=== PATIENT | female | born 2000 | race Caucasian/White ===

== ENCOUNTER → 2018-08-05 12:56 | Outpatient (CLI) | payer SELFPAY ==
[2018-08-05 14:23] LABS: Absolute Lymphocyte Count 1.38 X10^3/ul (0.83-4.51); Absolute Neutrophil Count 14.9 X10^3/uL (2.0-7.7); Basophil# 0.02 X10^3/uL; Basophil% 0.1 % (0-1); Eosinophil# 0.01 X10^3/uL; Eosinophils% 0.1 % (0-5); Hematocrit 41.7 % (37-47); Hemoglobin 13.6 g/dl (12.0-15.0); Lymphocyte # 1.38 X10^3/ul (4.0); Lymphocyte % 7.8 % (19-41); Mean Corp Hgb Conc 32.6 g/gl (32-36); Mean Corpuscular Hgb 29.4 pg (27.0-32.0); Mean Corpuscular Volume 90.3 fL (81-99); Mean Platelet Vol. 9.9 fl (6.2-12.0); Monocyte# 1.35 X10^3/uL; Monocyte% 7.7 % (0-10); Neutrophil # 14.86 X10^3/uL (2.7-7.7); Neutrophil % 84.2 % (47-70); Platelet Count 236 K/mm3 (150-450); RBC Distribution Width CV 14.1 % (11.6-14.6); RBC Distribution Width SD 46.6 fl (35.1-43.9); Red Blood Count 4.62 M/mm3 (4.2-5.4); White Blood Count 17.6 K/mm3 (4.4-11.0)
[2018-08-05 14:25] LABS: POSITIVE COUNT NO; POSITIVE DIFFERENTIAL NO; POSITIVE MORPHOLOGY NO
[2018-08-05 14:51] LABS: AST(SGOT) 7 U/L (15-37); Alanine Aminotransfer ALT/SGPT 17 U/L (13-56); Albumin, Serum 3.5 g/dL (3.2-5.0); Alkaline Phosphatase 76 U/L (45-117); Bilirubin, Direct 0.11 mg/dL (0.00-0.30); Globulin 4.4 g/dL (2.2-4.2); Protein, Total 7.9 g/dL (6.4-8.2)
[2018-08-05 15:21] LABS: Internal QC Validated? YES +Cl - CLEAR BKGD; Monotest Negative (Negative); Record Kit Lot#, Mono 13171517
[2018-08-07 07:50] LABS: EBV Acute VCA IgM < 36.0 U/mL (0.0-35.9); EBV Early Antigen IgG <9.0 U/mL (0.0-8.9)
== END ==
PROVIDERS: Family Provider Family Medicine; PCP Family Medicine; Referring Provider Family Medicine; Visit Provider Family Medicine
DX: J02.9 Acute pharyngitis, unspecified (principal)
CPT/HCPCS: 36415; 80076; 85025; 86308; 86663; 86664; 86665

== ENCOUNTER 2019-04-13 19:56 | Emergency (ER) | payer OTHER, SELFPAY ==
[2019-04-13 19:56] VITALS: BP 114/72; PULSE 145; RESP 18; TEMP 39.4; O2SAT 96; BMI 30.2
--- NOTE | 2019-04-13 21:12 | RAD_ITS ---
HISTORY: FEVER, BODY ACHES AND HEADACHES SINCE LAST NIGHT. INTERMITTENT SOB, ABDOMINAL PAIN EXAM: XR Chest 2 Views: COMPARISON: None FINDINGS: # of images incl. paperwork: 2 Lungs are clear. Heart is not enlarged. Bones are normal. Pulmonary vascularity is distinct. No effusions. RAD/Chest PA and Lateral IMPRESSION: Normal. at 2142 Reported and signed by: Doug Dixon MD Electronically Signed: Doug Dixon MD at 21:41 EDT Tel , Service support ,
--- NOTE | 2019-04-13 21:20 | ED.DCSUM_ITS ---
History of Present Illness Chief Complaint: Fever Informant: Patient, Family Onset: Yesterday Context: Gradual Onset Timing: Continuous Quality: achy, malaised Location: all over Current Severity: Moderate Maximum Severity: Moderate Worsened by: nothing Relieved by: nothing Associated Symptoms: low back discomfort, lower abd discomfort Narrative: Patient is having headache, she feels some stiffness/aching in her neck, myalgias without arthralgias or extremity rash. No nausea or vomiting. No neurologic symptoms in extremities. She has had no urinary symptoms but has had some discomfort in her lower abdomen. No coughing or shortness of breath, rhinorrhea, earache, or sore throat. No known sick contacts. She saw someone at PCP office earlier today, she states they did not know what was going on either and placed her on prednisone, she took 1 dose unknown dose, told her to come to the ER if she gets worse, which is where she is now. - Past Medical History (1) Small bowel obstruction due to adhesions Status: Resolved Past Medical History - Allergies and Home Meds Allergies/Adverse Reactions: Allergies No Known Allergies Allergy (Verified 04/13/19 20:02) Primary Care Physician: Noel Harmon MD [Primary Care Provider] - Surgical History: - - SBO surgery; malrotation repair as child Lives: With Family Smoking Status: Never smoker Drugs: None Review of Systems General: Reports: Fever, Malaise. Denies: Chills, Sweats Eyes: Denies: Visual changes - bilaterally, Diplopia ENT: Denies: Rhinorrhea, Sore throat Cardiovascular: Denies: Chest pain, Palpitations Respiratory: Denies: Dyspnea, Cough, Dyspnea on exertion Gastrointestinal: Reports: Abdominal pain. Denies: Nausea, Vomiting, Diarrhea, Melena, Hematochezia Genitourinary: Denies: Dysuria, Hematuria, Frequency Musculoskeletal: Reports: Myalgias, Neck pain, Back pain. Denies: Arthralgias, Extremity Pain Skin: Denies: Rash, Abscess, Wounds Neurological: Reports: Headache. Denies: Weakness, Parasthesia, Numbness Physical Exam Vital Signs/Narrative: Vital Signs Temp Pulse Resp BP Pulse Ox 04/13/19 19:56 103.0 F H 145 H 18 114/72 96 Inital Vital Signs reviewed: Yes General: Well nourished, Well developed, No Acute Distress Head: Normocephalic, Atraumatic Eyes: Perrl, EOMI, - - No photophobia ENT: Moist mucous membranes, No rhinorrhea, TM's clear Neck: Supple, Nontender, No lymphadenopathy, - - No meningismus. Full range of motion without any difficulty, including chin to chest, negative Brudzinski, and no neurologic symptoms. Cardiovascular: Regular rate, Regular rhythm, No murmurs Respiratory: No distress, CTA bilaterally, Chest nontender Abdomen: Soft, Nontender, Nondistended, Normal bowel sounds Back: Nontender, Normal Inspection. Negative for: CVA tenderness Extremities: Nontender, No edema. Negative for: Edema, Calf Tenderness Skin: Normal color, No rash, No Trauma Neurological: Alert, Oriented x3, Cranial nerves II-XII grossly intact, Normal Strength, Normal Sensation Psychological: Normal affect, Normal Mood Diagnostic/Tx/Re-eval Impressions Chest X-Ray 04/13/19 21:12 IMPRESSION: Normal. at 2142 Reported and signed by: Doug Dixon MD Electronically Signed: Doug Dixon MD at 21:41 EDT Tel , Service support , 04/13/19 21:12 Chest PA and Lateral [RAD] Stat 04/13/19 21:27 Mucosa - Nose Influenza Types A,B Direct FA (GEOVANNI) - Final Laboratory Results 04/13/19 04/13/19 04/13/19 20:20 21:45 21:45 WBC 11.4 H RBC 4.35 Hgb 13.0 Hct 38.0 MCV 87.4 MCH 29.9 MCHC 34.2 RDW 13.8 RDW Differential 44.4 H Plt Count 175 MPV 9.1 Immature Gran % (Auto) 0.200 Neut % (Auto) 84.9 H Lymph % (Auto) 6.8 L Esmeralda % (Auto) 8.0 Eos % (Auto) 0.0 Baso % (Auto) 0.1 Absolute Neuts (auto) 9.7 H Absolute Lymphs (auto) 0.78 L Total Counted Not Reportable Sodium 137 Potassium 3.5 Chloride 107 Carbon Dioxide 23.0 Anion Gap 7 BUN 10 Creatinine 0.89 Estim Creat Clear Calc 79.75 Est GFR (MDRD) Af Amer 103 Est GFR (MDRD) Non-Af 85 BUN/Creatinine Ratio 11.2 Glucose 120 H Calcium 8.5 Urine Color Yellow Urine Clarity Clear Urine pH 6.0 Ur Specific [place] 1.010 Urine Protein 15 H Urine Glucose (UA) Normal Urine Ketones Negative Urine Occult Blood 150 H Urine Nitrite Negative Urine Bilirubin Negative Urine Urobilinogen Normal Ur Leukocyte Esterase Negative Urine RBC 0-5 SEEN Urine WBC 0 SEEN Ur Squamous Epith Cells 0 SEEN Urine Bacteria 0 SEEN Urine Mucus 0 SEEN - Medical Decision Making Patient was given IV Toradol, she feels much better. Her headache and neck discomfort are much improved as well. She is not examining like a patient with bacterial meningitis and I do not think she requires an LP. We did discuss viral meningitis, which certainly is a possibility, but I do not think she has HSV and is not clinically encephalopathic. She is very well-appearing with an otherwise normal exam. I offered them/her an LP if she would desire it. They declined and are comfortable with supportive care and outpatient follow-up at home. The nurse practitioner they saw put her on prednisone and she took a dose. She has a mild leukocytosis with a mild left shift, prednisone can cause this, unknown if it is doing so already. Her urine is negative, chest x-ray is normal, influenza is negative, and the rest of her labs are unremarkable. They are comfortable going home and are welcome to return for worsening symptoms, I advised hydration and fever control and follow-up, we are obtaining blood cultures prior to discharge to rule out occult bacterial etiology. ED Disposition - Plan for ED Patient: Disposition: Home or Assisted Living Diagnosis: Viral syndrome Instructions: ED Fever Unconf Cause, ED Viral Syndrome Referrals: Noel Harmon MD [Primary Care Provider] - 2 Days Additional Instructions: Discontinue steroids.
[2019-04-13 21:26] LABS: Bacteria 0 SEEN /hpf (None Seen); Mucous, Urine 0 SEEN /hpf (<or=2+); Squamous Epithelial Cells - UA 0 SEEN /hpf (5-10); White Blood Cells 0 SEEN /hpf (0-5)
[2019-04-13 21:32] LABS: Color, Urine Yellow (Yellow); Glucose, Dipstick Normal (Normal); Ketone-Dipstick Negative (Negative); Leukocyte Esterase-Dipstick Negative /ul (Negative); Nitrite-Dipstick Negative (Negative); Occult Blood-Urine 150 /ul (Negative); Protein-Dipstick 15 mg/dl (Negative); Urine Bilirubin Dipstick Negative (Negative); Urine Clarity Clear (Clear); Urine Urobilinogen Normal (Normal)
[2019-04-13 21:39] LABS: Red Blood Cells-Urine 0-5 SEEN /hpf (0-5)
[2019-04-13] MEDS: Ketorolac 30 MG/ML Syringe IV (21:48)
[2019-04-13 21:49] VITALS: BP 122/62; PULSE 99; RESP 16; TEMP 39.4; O2SAT 96
[2019-04-13 21:51] LABS: Absolute Lymphocyte Count 0.78 X10^3/ul (0.83-4.51); Absolute Neutrophil Count 9.7 X10^3/uL (2.0-7.7); Basophil# 0.01 X10^3/uL; Basophil% 0.1 % (0-1); Lymphocyte # 0.78 X10^3/ul (4.0); Lymphocyte % 6.8 % (19-41); Mean Corp Hgb Conc 34.2 g/gl (32-36); Mean Corpuscular Hgb 29.9 pg (27.0-32.0); Mean Corpuscular Volume 87.4 fL (81-99); Mean Platelet Vol. 9.1 fl (6.2-12.0); Monocyte# 0.91 X10^3/uL; Neutrophil % 84.9 % (47-70); Platelet Count 175 K/mm3 (150-450); RBC Distribution Width CV 13.8 % (11.6-14.6); RBC Distribution Width SD 44.4 fl (35.1-43.9); Red Blood Count 4.35 M/mm3 (4.2-5.4); White Blood Count 11.4 K/mm3 (4.4-11.0)
[2019-04-13 22:00] LABS: POSITIVE COUNT NO; POSITIVE DIFFERENTIAL NO; POSITIVE MORPHOLOGY NO
[2019-04-13 22:08] LABS: Anion Gap 7 (5-15); BUN 10 mg/dL (7-18); BUN/Creat Ratio 11.2 RATIO (10-20); Calcium,Total 8.5 mg/dL (8.5-10.1); Chloride 107 mmol/L (98-107); Creatinine, Serum 0.89 mg/dL (0.55-1.02); EST Glomerular Filtration Rate 85 mL/min (>60); Est Glom Filt Rate - Afr Amer 103 mL/min (>60); Estimated Creatinine Clearance 79.75 ml/min; Glucose 120 mg/dL (74-106); Potassium 3.5 mmol/L (3.5-5.1); Sodium Level 137 mmol/L (136-145)
[2019-04-13 22:54] VITALS: BP 114/57; PULSE 83; RESP 16; TEMP 37.4; O2SAT 97
[2019-04-13 23:37] VITALS: BP 112/65; PULSE 84; RESP 18; O2SAT 98
== END 2019-04-13 23:38 | disposition home or self-care (01) ==
PROVIDERS: Emergency Provider Emergency Medicine; Family Provider Family Medicine; PCP Family Medicine
DX: B34.9 Viral infection, unspecified (principal); R50.9 Fever, unspecified; R51 Headache; M54.2 Cervicalgia; M79.10 Myalgia, unspecified site; R10.30 Lower abdominal pain, unspecified; M54.9 Dorsalgia, unspecified; Z87.19 Personal history of other diseases of the digestive system
CPT/HCPCS: 36415; 71046; 80048; 81001; 85025; 87040; 87804; 96374; 99284; A4216

== ENCOUNTER → 2021-08-07 15:53 | Outpatient (CLI) | payer OTHER, SELFPAY ==
[2021-08-07 20:01] LABS: Probe Check Y; Specimen Processing Control Y
== END ==
PROVIDERS: PCP Family Medicine; Referring Provider Otolaryngology; Visit Provider Otolaryngology
DX: Z11.59 Encounter for screening for other viral diseases (principal); Z03.818 Encounter for observation for suspected exposure to other biological agents ruled out
CPT/HCPCS: 87635; U0005; U0003

== ENCOUNTER → 2021-08-13 15:45 | Outpatient (CLI) | payer OTHER, SELFPAY ==
--- NOTE | 2021-08-13 | TONS_PTH ---
PATIENT: PARIS STOREY LOC: [facility] U#:[id number] AGE/SX: 25/F ROOM: RE08/13/[address]: Dr. Kishor Bridges MD : 2000 BED: DIS: SPEC #: [id number] RECD: 08/13/21 15:02 STATUS: BOBBI MOYAVerna #: [id number] JUAN CARLOS: 08/13/21 00:[address]: Kishor Bridges DEPT: SURGICAL PATHOLOGY RECD BY: Sander Mathew ENTERED: 08/14/21 09:54 SP TYPE: TONSILS OTHR DR: Dr. Noel Harmon MD [facility] Tissues: Tonsil, NOS Procedures: Surgery Specimen Level III HEADER OPERATION: Tonsillectomy PRE-OP DIAGNOSIS: Infective pharyngitis TISSUE SUBMITTED: Tonsils, right pinned MICROSCOPIC DIAGNOSIS Right and left tonsils, bilateral tonsillectomies: Benign lymphoid hyperplasia. Organisms consistent with actinomyces. AM:isha 08/15/2021 MICROSCOPIC DESCRIPTION Slides are reviewed. GROSS DESCRIPTION Received is one container labeled with the patient's name and designated tonsils - pin on right are two tonsils that in aggregate weigh 8.9 gm. The right tonsil has a pin on it and measures 3 x 2 x 1.5 cm. The left tonsil measures 2.5 x 2 x 1.5 cm. Both tonsils are similar in appearance. The external surfaces are pink-davila, smooth, glistening and somewhat lobulated. Focally they are hemorrhagic, granular and bear cautery artifact. Serial cross sections through the tonsils reveal normal tonsillar architecture. Sections are submitted in two cassettes as follows: 1 - right tonsil, 2 - left tonsil. / CHACE:isha 08/14/21 TC:5 [facility]: [id number] x2
== END ==
PROVIDERS: PCP Family Medicine; Referring Provider Otolaryngology; Visit Provider Otolaryngology
DX: J02.9 Acute pharyngitis, unspecified (principal)
CPT/HCPCS: 88304

== ENCOUNTER 2021-12-31 13:53 | Outpatient (CLI) | payer MEDICAID, SELFPAY ==
[2021-12-31 15:20] LABS: Absolute Lymphocyte Count 1.81 X10^3/uL (0.83-4.51); Basophil# 0.03 X10^3/uL; Basophil% 0.4 % (0-1); Eosinophils% 1.3 % (0-5); Hematocrit 38.6 % (37-47); Hemoglobin 13.6 g/dL (12.0-15.0); Lymphocyte # 1.81 X10^3/ul (0.83-4.51); Lymphocyte % 23.3 % (19-41); Mean Corp Hgb Conc 35.2 g/dL (32-36); Mean Corpuscular Hgb 30.4 pg (27.0-32.0); Mean Corpuscular Volume 86.4 fL (81-99); Mean Platelet Vol. 9.7 fl (6.2-12.0); Monocyte# 0.83 X10^3/uL; Monocyte% 10.7 % (0-10); NRBC Flagged by Analyzer 0 % (0-5); Neutrophil # 4.96 X10^3/uL (2.7-7.7); Neutrophil % 63.8 % (47-70); Platelet Count 260 K/mm3 (150-450); RBC Distribution Width CV 13.6 % (11.6-14.6); RBC Distribution Width SD 42.6 fl (35.1-43.9); Red Blood Count 4.47 M/mm3 (4.2-5.4); White Blood Count 7.8 K/mm3 (4.4-11.0)
[2022-01-01 08:48] LABS: HIV - WCH Non-Reactive (Nonreactive); Hepatitis B Surface Antigen Non-Reactive (Nonreactive); Hepatitis C Antibody Non-Reactive (Nonreactive); Rubella IgG Reactive (Nonreactive); Syphilis Antibodies Non-reactive
[2022-01-02 22:07] LABS: Chlamydia By Nucleic Acid AMP Negative (Negative)
[2022-01-03 16:27] LABS: Gonococcus By Nucleic Acid AMP Negative (Negative)
== END 2021-12-31 23:59 | disposition home or self-care (01) ==
PROVIDERS: PCP Family Medicine; Visit Provider Student in an Organized Health Care Education/Training Program
DX: Z11.3 Encounter for screening for infections with a predominantly sexual mode of transmission (principal); Z34.81 Encounter for supervision of other normal pregnancy, first trimester
CPT/HCPCS: 85025; 86703; 86762; 86780; 86803; 87086; 87088; 87340; 87491; 87591

== ENCOUNTER 2022-01-14 09:55 | Outpatient (CLI) | payer MEDICAID, SELFPAY ==
[2022-01-14 11:17] LABS: Glucose Challenge Gest 1H 50g 106 mg/dL (70-140)
== END 2022-01-14 23:59 | disposition home or self-care (01) ==
PROVIDERS: PCP Family Medicine; Visit Provider Student in an Organized Health Care Education/Training Program
DX: Z34.82 Encounter for supervision of other normal pregnancy, second trimester (principal)
CPT/HCPCS: 36415; 82950